=== PATIENT | female | born 1945 | race Caucasian/White ===

== ENCOUNTER 2017-12-26 18:29 | Emergency (ER) | payer MEDICARE, OTHER ==
[2017-12-26] MEDS ORDERED: HYDROcodone/Acetaminophen 5/325 mg Tablet ONE (18:40)
--- NOTE | 2017-12-26 19:56 | RAD ---
LEFT SHOULDER: HISTORY: Injury and pain. FINDINGS: There is anterior-inferior dislocation of the humeral head, with respect to the glenoid. Fragment, l ikely originating from the left humeral head, is noted. Post reduction films are recommended. IMPRESSION: Fracture involving the left humerus with associated anterior-inferior dislocation. Post reduction fi lms are recommended. POS: [facility]
[2017-12-26] MEDS ORDERED: PROPOFOL 20 ML ONE (20:45)
--- NOTE | 2017-12-26 21:24 | RAD ---
LEFT SHOULDER TWO VIEWS: HISTORY: Status post reduction. COMPARISON: 12/26/2017 at 7:35 p.m. FINDINGS: Interval reduction of previously noted anterior-inferior dislocation. There is increased density lat eral to the humeral head, suggesting a fracture fragment. The donor site is presumed to be from the adjacent humeral head. There appears to be a nondisplaced lucency along the neck of the proximal lef t humerus. IMPRESSION: 1. Interval reduction. 2. Fracture, as described above. POS: [facility]
== END 2017-12-26 21:52 | disposition home or self-care (01) ==
LOC: ERS 18:29
DX: S43.015A Anterior dislocation of left humerus, initial encounter (principal); S43.035A Inferior dislocation of left humerus, initial encounter; I10 Essential (primary) hypertension; E78.5 Hyperlipidemia, unspecified; W19.XXXA Unspecified fall, initial encounter
CPT/HCPCS: 23650; 99152; J2704

== ENCOUNTER 2018-01-12 16:00 | Inpatient (IN) | payer MEDICARE, OTHER ==
[2018-01-12 16:22] VITALS: BMI 29.2
[2018-01-13] MEDS ORDERED: CEFAZOLIN 2 GM/50 ML BAG ONE (06:39)
[2018-01-13] MEDS ORDERED: Midazolam HCl 2 mg/2 ml Vial ONE (07:13)
[2018-01-13] MEDS ORDERED: Fentanyl 100 MCG/2 ML VIAL ONE ×2 (07:13→08:32)
[2018-01-13] MEDS ORDERED: Lidocaine 1% (PF) 30 ML VIAL ONE (07:13)
[2018-01-13] MEDS ORDERED: HYDROcodone/Acetaminophen 10/325 mg Tablet PO PRN ×2 (07:34)
[2018-01-13] MEDS ORDERED: Zolpidem Tartrate 5 MG TAB PO PRN (07:34)
[2018-01-13] MEDS ORDERED: Ropivacaine 0.2% 550 ML 550 ML NERVE BLCK SCH (07:34)
[2018-01-13] MEDS ORDERED: traMADol HCl 50 MG TAB PO PRN ×2 (07:34)
[2018-01-13] MEDS ORDERED: Ondansetron PF 4 MG/2 ML Vial IVP PRN (07:34)
[2018-01-13] MEDS ORDERED: Promethazine HCl 25 MG/ML VIAL IM PRN ×2 (07:34→09:51)
[2018-01-13] MEDS ORDERED: Ketorolac Tromethamine 30 MG/ML VIAL IVP PRN (07:34)
[2018-01-13] MEDS ORDERED: Fentanyl 100 MCG/2 ML VIAL SLOW IVP PRN (07:35)
[2018-01-13] MEDS ORDERED: PHARMACY TO DOSE ANTIBIOTICS FS PRN (09:45)
[2018-01-13] MEDS ORDERED: Promethazine HCl 25 MG/ML VIAL SLOW IVP PRN (09:51)
[2018-01-13] MEDS ORDERED: Ondansetron HCl/PF 4 MG/2 ML Vial IVP PRN (09:51)
[2018-01-13] MEDS ORDERED: TETANUS AND DIPHTHERIA TOX/PF 0.5 ML DISP.SYRIN IM SCH (11:00)
--- NOTE | 2018-01-13 11:14 | OP ---
DATE OF PROCEDURE: 01/13/2018 OPERATION: Left reverse shoulder arthroplasty. PREOPERATIVE DIAGNOSIS: Left proximal humerus fracture dislocation. POSTOPERATIVE DIAGNOSIS: Left proximal humerus fracture dislocation. COMPLICATIONS: None. ESTIMATED BLOOD LOSS: 350 mL SURGEON: Douglas Medina M.D. CEMENTER HELPER: Wilber Mejias M.D. IMPLANTS: DePuy reverse shoulder arthroplasty size 10 stem, size 38 glenosphere with a +6 glenoid li ner. INDICATIONS: Ms. Schultz is a 72-year-old female who fell. She fractured and dislocated her left pr oximal humerus. She failed nonoperative treatment and was worsening. We indicated her for reverse s houlder arthroplasty. She elected to proceed. Risks were reviewed. We have reviewed her postoperat ankush course. She is aware. DESCRIPTION OF PROCEDURE: Ms. Schultz was identified in the preoperative holding area. Her left upp er extremity was prepped and draped in the sterile fashion after she was prepped and draped in the op erating room. A multidisciplinary timeout was performed. Intravenous antibiotics were given. We be asher the procedure with a deltopectoral approach. We dissected down through the subcutaneous tissues to the deltopectoral interval. We protected the cephalic vein. We then worked more deeply opening t he clavipectoral fascia. At this point, we exposed the underlying subscapularis and greater tuberosi ty as well as the humeral head. There were multiple fracture fragments. We elevated the fracture fr agments including the lesser tuberosity. This was retracted with a stay suture. The greater tuberos ity was retracted as well. We removed the humeral head component. At this point, we exposed the und erlying glenoid. We cleared the glenoid of cartilage. We inserted a guidewire. We then reamed the guidewire. Next, we drilled our central peg hole. At this point, we placed our baseplate. Four scr ews were placed in the baseplate superior, inferior, anterior and posterior. We then impacted our gl enosphere and tightened the screw appropriately. At this point, we thoroughly irrigated with copious lavage. We then exposed the humerus. We reamed the humerus to a size 10. We then placed a trial stem. We trialed off this for an appropriate poly size. A +6 was good for stability and range of motion. We removed the trial component. We then imp acted our final component and poly. We reduced the shoulder once again. Finally, we restored the an atomy of the tuberosities with Ethibond suture. The lesser and greater tuberosities were repaired. We closed the remaining tissues in layers. A sterile dressing was applied. The patient was taken to the recovery room in good condition without complication.
[2018-01-13] MEDS ORDERED: Ropivacaine 0.5% HCl/PF (150 MG/30 ML VIAL) ONE (11:27)
[2018-01-13] MEDS ORDERED: Ropivacaine 0.2% HCl/PF (40 MG/20 ML VIAL) ONE (11:27)
--- NOTE | 2018-01-13 11:34 | RAD ---
PORTABLE LEFT SHOULDER 1 VIEW: HISTORY: Status post reverse shoulder arthroplasty. FINDINGS/IMPRESSION: There are postop changes left total shoulder arthroplasty in good position and alignment. POS: [facility]
[2018-01-13] MEDS: Sodium Chloride 0.9% 100 ML IV SCH ×10 (12:10→22:44)
[2018-01-13] MEDS ORDERED: ePHEDrine/0.9% NaCl/PF SYRINGE 50 mg/10 ml ONE (13:18)
[2018-01-13] MEDS ORDERED: PROPOFOL 200 MG/20 ML VIAL ONE (13:18)
[2018-01-13] MEDS ORDERED: PHENYLEPHRINE-NS 100 MCG/ML 10 ML SYRINGE ONE (13:18)
[2018-01-13] MEDS ORDERED: Dexamethasone 20 MG/5 ML VIAL ONE (13:18)
[2018-01-13] MEDS ORDERED: Ondansetron PF 4 MG/2 ML Vial ONE (13:18)
[2018-01-13] MEDS ORDERED: Ketorolac Tromethamine 30 MG/ML VIAL ONE (13:18)
[2018-01-13] MEDS ORDERED: Succinylcholine Chloride 20 MG/ML 10 ml SYRINGE FS ONE (13:18)
[2018-01-13] MEDS: CEFAZOLIN 2 GM/50 ML BAG IVPB SCH ×2 (14:36→21:54)
[2018-01-13] MEDS ORDERED: Simvastatin 20 MG TAB PO SCH (21:00)
[2018-01-14] MEDS: Sodium Chloride 0.9% 100 ML IV SCH ×3 (01:35→04:59)
[2018-01-14] MEDS ORDERED: Sodium Chloride 0.9% 1,000 ML IV SCH (05:15)
[2018-01-14 05:36] LABS: #Monocytes 1.3 thou/uL (0.11-0.59); #Neutrophils 8.3 thou/uL (1.40-6.50); %Eosinophils 0.2 % (0.0-10.0); %Lymphocytes 16.8 % (21.0-51.0); %Monocytes 10.8 % (0.0-10.0); %Neutrophils 72.1 % (42.0-75.0); Hemoglobin 9.2 g/dL (12.0-16.0); Mean Corpuscular HGB CONC 33.4 g/dL (32.0-36.0); Mean Corpuscular Hemoglobin 31.5 pg (27.0-31.0); Mean Corpuscular Volume 94.2 fL (78.0-98.0); Mean Platelet Volume 6.9 fL (7.4-10.4); Platelet Count 228 thou/uL (130-400); RBC Distribution Width 12.8 % (11.5-14.5); Red Blood Cell (RBC) Count 2.93 mill/uL (4.20-5.40); White Blood Cell (WBC) Count 11.6 thou/uL (4.8-10.8)
[2018-01-14 08:11] VITALS: TEMP 99.4
[2018-01-14] MEDS ORDERED: [UNRECOGNIZED DRUG - OTHER] PO SCH (09:00)
[2018-01-14] MEDS ORDERED: Potassium Chloride 10 MEQ TAB PO SCH (09:00)
[2018-01-14] MEDS ORDERED: FLUoxetine HCl 10 MG CAP PO SCH (09:00)
[2018-01-14] MEDS ORDERED: Fish Oil 1,000 MG CAP PO SCH (09:00)
[2018-01-14] MEDS ORDERED: Atenolol 25 MG TAB PO SCH (09:00)
[2018-01-14 12:56] VITALS: BP 100/63
== END 2018-01-14 12:32 | disposition home or self-care (01) | DRG 483 ==
LOC: SURG A 01-13 06:32 → SURG B 01-13 10:56 → EDSTATUS 01-13 16:00
PROVIDERS: ADMIT Orthopaedic Surgery; ATTEND Orthopaedic Surgery
PROC: 0RRK00Z Replacement of Left Shoulder Joint with Reverse Ball and Socket Synthetic Substitute, Open Approach (ICD-10-PCS; principal; 2018-01-13)
DX: S42.292A Other displaced fracture of upper end of left humerus, initial encounter for closed fracture (principal); Z01.812 Encounter for preprocedural laboratory examination
CPT/HCPCS: 36415; 80048; 81001; 85025; 85027; 85610; 93005; 93010; A4306; G8978-GP-CI; G8979-GP-CI; G8980-GP-CI; J1100; J1885; J2001; J2250; J2405; J2704; J2795; J3010

== ENCOUNTER 2018-01-12 16:02 | Outpatient (CLI) | payer MEDICARE, OTHER ==
[2018-01-12 17:25] LABS: Hemoglobin 12.4 g/dL (12.0-16.0); Mean Corpuscular HGB CONC 33.3 g/dL (32.0-36.0); Mean Corpuscular Hemoglobin 31.3 pg (27.0-31.0); Mean Corpuscular Volume 93.9 fL (78.0-98.0); Mean Platelet Volume 7.2 fL (7.4-10.4); Platelet Count 273 thou/uL (130-400); RBC Distribution Width 12.7 % (11.5-14.5); Red Blood Cell (RBC) Count 3.94 mill/uL (4.20-5.40); White Blood Cell (WBC) Count 8.1 thou/uL (4.8-10.8)
[2018-01-12 17:30] LABS: Prothrombin Time 13.6 SEC (12.0-14.7)
[2018-01-12 17:44] LABS: Anion Gap 15 mmol/L (10-20); BUN (Urea Nitrogen) 27 mg/dL (9.8-20.1); Calc. Creatinine Clearance 0 mL/min (70-130); Calcium 9.3 mg/dL (7.8-10.44); Carbon Dioxide 23 mmol/L (23-31); Chloride 107 mmol/L (98-107); Estimated GFR-MDRD 37; Glucose 96 mg/dL (80-115); Potassium 3.7 mmol/L (3.5-5.1); Sodium 141 mmol/L (136-145)
[2018-01-12 17:47] LABS: Bilirubin Negative (Negative); Blood, Urine Negative (Negative); Clarity CLEAR (Clear); Glucose, Urine (Dipstick) Negative (Negative); Leukocyte Negative (Negative); Nitrite Negative (Negative); Protein, Urine (Dipstick) Negative (Neg-Trace); Specific Gravity, Urine 1.026 (1.002-1.036); Urobilinogen 0.2 mg/dL (0.2-1.0); pH, Urine 6.5 (5.0-9.0)
[2018-01-12 17:53] LABS: Bacteria/HPF None Seen HPF (None Seen); Hyaline Casts/LPF 0-3 HYALINE CAST LPF (0-3 Hyaline); Pathc Cast-AUWi Flag 0.14 (0-2.49); RBC/HPF 0-3 HPF (0-3); Squamous Epithelial 0-3 HPF (0-3); WBC/HPF 0-3 HPF (0-3)
== END 2018-01-12 16:03 | disposition home or self-care (01) ==
LOC: LABBT 16:02
PROVIDERS: ATTEND Orthopaedic Surgery
DX: Z01.812 Encounter for preprocedural laboratory examination (principal); S42.202A Unspecified fracture of upper end of left humerus, initial encounter for closed fracture
CPT/HCPCS: 80048; 81001; 85027; 85610; 93005; 93010

== ENCOUNTER 2021-06-24 11:04 | Outpatient (CLI) | payer MEDICARE, OTHER | END 2021-06-24 11:05 | disposition home or self-care (01) | LOC: BICMAMMO 11:04 | PROVIDERS: ATTEND Internal Medicine | DX: Z12.31 Encounter for screening mammogram for malignant neoplasm of breast (principal) | CPT/HCPCS: 77063; 77067 ==

== ENCOUNTER 2023-08-09 11:45 | Outpatient (CLI) | payer MEDICARE, OTHER | END 2023-08-09 11:46 | disposition home or self-care (01) | LOC: PET 11:45 | PROVIDERS: ATTEND Psychiatry & Neurology Neurology | DX: R41.3 Other amnesia (principal) | CPT/HCPCS: 78803; A9552 ==

== ENCOUNTER 2023-10-28 14:17 | Outpatient (CLI) | payer MEDICARE, OTHER | END 2023-10-28 14:18 | disposition home or self-care (01) | LOC: BICMAMMO 14:17 | PROVIDERS: ATTEND Physician Assistant | DX: M81.0 Age-related osteoporosis without current pathological fracture (principal); M85.89 Other specified disorders of bone density and structure, multiple sites | CPT/HCPCS: 77080 ==